=== PATIENT | male | born 1940 | race Caucasian/White ===

== ENCOUNTER 2020-06-11 12:17 | Emergency (ER) | payer MEDICARE, OTHER ==
[2020-06-11] MEDS ORDERED: MORPHINE SULFATE 4 MG/ML SYRINGE IM STA (12:42)
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
--- NOTE | 2020-06-11 13:10 | XR ---
EXAMINATION TYPE: XR Hip Complete RT DATE OF EXAM: 06/11/2020 COMPARISON: NONE HISTORY: Pain TECHNIQUE: 2 views submitted FINDINGS: There is no evidence of erosive change or acute fracture. Arthropathy of the hip diffuse osteopenia. Numerous surgical clips are seen. Parotid lesion involving the femur likely the basis of bone infarct rather than chondroid lesion. Hypertrophic change along the distal margin of the amputated femur. IMPRESSION: 1. No evidence of acute fracture or dislocation. Postsurgical change with diffuse osteopenia and prob able bone infarct.
[2020-06-11 14:08] VITALS: RESP 18
[2020-06-11 14:09] VITALS: BP 138/83; PULSE 61; TEMP 97.8
== END 2020-06-11 14:14 | disposition home or self-care (01) ==
LOC: EC 12:17
DX: T87.89 Other complications of amputation stump (principal); I73.9 Peripheral vascular disease, unspecified; Z79.82 Long term (current) use of aspirin; Z88.1 Allergy status to other antibiotic agents; Z89.611 Acquired absence of right leg above knee; Z85.51 Personal history of malignant neoplasm of bladder; W05.1XXA Fall from non-moving nonmotorized scooter, initial encounter; Y93.55 Activity, bike riding
CPT/HCPCS: 73502; 99283; 96372; J2270

== ENCOUNTER 2020-06-17 19:41 | Inpatient (IN) | payer MEDICARE ==
[2020-06-17] MEDS ORDERED: SODIUM CHLORIDE 0.9% 500 ML 500 ML IV ONE ×2 (19:58→20:37)
--- NOTE | 2020-06-17 20:15 | ED ---
General Adult HPI - General Source: patient, RN notes reviewed, old records reviewed Mode of arrival: wheelchair Limitations: no limitations <Tom Flores - Last Filed: 06/17/20 20:37> <Max Pretty - Last Filed: 06/17/20 21:14> - General Chief complaint: Altered Mental Status Stated complaint: Dark Urine,Hallucinations Time Seen by Provider: 06/17/20 19:52 - History of Present Illness Initial comments: 80-year-old male presents for evaluation of confusion over the past several days. Patient is brought in with his daughter who states that he's been having some visual hallucinations also over the past 48 hours or greater. He has history of previous [id number] amputation on the right secondary to peripheral vascular disease. He denies any weakness in the left lower extremity or weakness in the bilateral upper extremities. He had a fall approximately one week ago onto the left hip. He denies significant head, at that time but is uncertain if he did have a minor head trauma. No cough or fever. No abdominal pain. He's had previous bladder reconstruction and does intermittently self cath. He's had to cath himself over the past 24 hours and his had very dark urine. (Tom Flores) - Related Data Home Medications Medication Instructions Recorded Confirmed Aspirin EC [Ecotrin Low Dose] 81 mg PO DAILY 04/29/16 07/28/16 Atorvastatin [Lipitor] 40 mg PO DAILY 04/29/16 07/28/16 Carvedilol [Coreg] 3.125 mg PO BID 04/29/16 07/28/16 Ciprofloxacin HCl [Cipro] 750 mg PO BID 04/29/16 07/28/16 Furosemide [Lasix] 20 mg PO DAILY 04/29/16 07/28/16 Gabapentin [Neurontin] 300 mg PO TID@0730,1300,1930 04/29/16 07/28/16 Levothyroxine Sodium [Synthroid] 50 mcg PO DAILY@0500 04/29/16 07/28/16 Multivit-Min/FA/Lycopen/Lutein 1 tab PO DAILY 04/29/16 07/28/16 [Centrum Silver Tablet] Sertraline [Zoloft] 50 mg PO DAILY 04/29/16 07/28/16 Sennosides [Senna] 8.6 mg PO BID 07/27/16 07/28/16 Iron 45mg Tab 45 mg PO HS 07/28/16 07/28/16 Pro-Stat Sugar Free 30 ml PO BID 07/28/16 07/28/16 Previous Rx's Medication Instructions Recorded Morphine Sulfate ER [Ms Contin] 15 mg PO BID@0900,2100 #60 tablet 07/31/16 Warfarin Sodium [Coumadin] 3 mg PO HS #30 tab 07/31/16 methocarbamoL [Robaxin] 750 mg PO TID@0730,1300,1930 PRN 07/31/16 #60 tab oxyCODONE-APAP 10-325MG [Percocet 1 each PO Q4H PRN #120 tab 07/31/16 10-325 mg] oxyCODONE HCL/ACETAMINOPHEN 1 tab PO Q6HR PRN 3 Days #12 tab 06/11/20 [Percocet 5-325 mg] Allergies Allergy/AdvReac Type Severity Reaction Status Date / Time vancomycin Allergy Itching Verified 07/28/16 08:51 Review of Systems ROS Other: All systems not noted in ROS Statement are negative. <Tom Flores - Last Filed: 06/17/20 20:37> ROS Other: All systems not noted in ROS Statement are negative. <Max Pretty - Last Filed: 06/17/20 21:14> ROS Statement: Those systems with pertinent positive or pertinent negative responses have been documented in the HPI. Past Medical History Past Medical History: Cancer Additional Past Medical History / Comment(s): Peripheral artery disease; Bladder cancer History of Any Multi-Drug Resistant Organisms: None Reported Past Surgical History: Bladder Surgery Additional Past Surgical History / Comment(s): Aterial bypasses - right leg. Past Anesthesia/Blood Transfusion Reactions: No Reported Reaction Past Psychological History: No Psychological Hx Reported Smoking Status: Never smoker Past Alcohol Use History: Rare Past Drug Use History: Marijuana - Past Family History Father Additional Family Medical History / Comment(s): Rebecca Gherig disease Mother Family Medical History: Myocardial Infarction ([place]) <Tom Flores - Last Filed: 06/17/20 20:37> General Exam Limitations: no limitations General appearance: alert, in no apparent distress Head exam: Present: atraumatic, normocephalic Eye exam: Present: normal appearance, PERRL ENT exam: Present: mucous membranes dry Neck exam: Present: normal inspection. Absent: tenderness, meningismus Respiratory exam: Present: normal lung sounds bilaterally. Absent: respiratory distress, wheezes Cardiovascular Exam: Present: regular rate, normal rhythm GI/Abdominal exam: Present: soft. Absent: distended, tenderness, guarding Extremities exam: Present: other (Right AKA). Absent: pedal edema Neurological exam: Present: alert, oriented X3, CN II-XII intact. Absent: motor sensory deficit Psychiatric exam: Present: normal affect, normal mood Skin exam: Present: warm, dry, intact <Tom Flores - Last Filed: 06/17/20 20:37> Course <Tom Flores - Last Filed: 06/17/20 20:37> Vital Signs 06/17/20 19:44 Temperature 97.9 F Pulse Rate 80 Respiratory 18 Rate Blood Pressure 193/78 O2 Sat by Pulse 99 Oximetry - Reevaluation(s) Reevaluation #1: 06/17/20 20:37 Patient's care is signed out to Dr. Pretty at shift change awaiting laboratory testing and reevaluation. (Tom Flores) EKG Findings - EKG Comments: EKG Findings:: EKG: Normal sinus rhythm, no ST segment elevation, artifact in the inferior leads. Rate of 77, AK interval 206, QRS duration 86, QTC 432 <Tmo Flores - Last Filed: 06/17/20 20:37> Medical Decision Making - Lab Data Result diagrams: 06/17/20 20:23 06/17/20 20:23 <Max Pretty - Last Filed: 06/17/20 21:14> - Medical Decision Making Patient was signed out to me by previous shift physician. Briefly, patient is a 80-year-old male he is brought into the emergency department for hallucinations. Patient was also having abnormal urine per daughter. Plan sign out was to follow-up with laboratory and imaging studies. CBC shows leukocytosis 14.1. Metabolic panel shows acute kidney injury cranial 2.13 BUN of 53. Rest labs appear to be near baseline. Urinalysis is positive for urinary tract infection. Computed tomography scan of the brain is unremarkable. Clinical presentation consistent with metabolic encephalopathy likely from UTI. He does also have component of acute kidney injury. Denies any pain. Considering patient's whole clinical presentation we'll have patient admitted for renal function monitoring, IV hydration and antibiotics. Patient was given 1 g ceftriaxone. He is ree valuated bedside and completely coherent without any signs of hallucinations or abnormal or bizarre behavior. (Max Pretty) - Lab Data Lab Results 06/17/20 06/17/20 06/17/20 Range/Units 20:23 20:23 20:23 WBC 14.1 H (3.8-10.6) k/uL RBC 4.68 (4.30-5.90) m/uL Hgb 13.0 (13.0-17.5) gm/dL Hct 39.7 (39.0-53.0) % MCV 85.0 (80.0-100.0) fL MCH 27.8 (25.0-35.0) pg MCHC 32.7 (31.0-37.0) g/dL RDW 13.8 (11.5-15.5) % Plt Count 307 (150-450) k/uL Neutrophils % 70 % Lymphocytes % 12 % Monocytes % 12 % Eosinophils % 2 % Basophils % 1 % Neutrophils # 9.9 H (1.3-7.7) k/uL Lymphocytes # 1.7 (1.0-4.8) k/uL Monocytes # 1.7 H (0-1.0) k/uL Eosinophils # 0.3 (0-0.7) k/uL Basophils # 0.1 (0-0.2) k/uL Sodium 135 L (137-145) mmol/L Potassium 4.4 (3.5-5.1) mmol/L Chloride 109 H (98-107) mmol/L Carbon Dioxide 15 L (22-30) mmol/L Anion Gap 11 mmol/L BUN 53 H (9-20) mg/dL Creatinine 2.13 H (0.66-1.25) mg/dL Est GFR (CKD-EPI)AfAm 33 (>60 ml/min/1.73 sqM) Est GFR (CKD-EPI)NonAf 28 (>60 ml/min/1.73 sqM) Glucose 106 H (74-99) mg/dL Calcium 8.8 (8.4-10.2) mg/dL Total Bilirubin 0.9 (0.2-1.3) mg/dL AST 91 H (17-59) U/L ALT 60 H (4-49) U/L Alkaline Phosphatase 187 H (38-126) U/L Total Protein 6.8 (6.3-8.2) g/dL Albumin 3.4 L (3.5-5.0) g/dL Urine Color Yellow Urine Appearance Cloudy (Clear) Urine pH 7.5 (5.0-8.0) Ur Specific [place] 1.014 (1.001-1.035) Urine Protein 2+ H (Negative) Urine Glucose (UA) Negative (Negative) Urine Ketones Negative (Negative) Urine Blood Moderate H (Negative) Urine Nitrite Negative (Negative) Urine Bilirubin Negative (Negative) Urine Urobilinogen <2.0 (<2.0) mg/dL Ur Leukocyte Esterase Large H (Negative) Urine RBC 81 H (0-5) /hpf Urine WBC >182 H (0-5) /hpf Urine WBC Clumps Many H (None) /hpf Urine Bacteria Rare H (None) /hpf Hyaline Casts 3 H (0-2) /lpf Urine Yeast (Budding) Few H (None) /hpf Disposition <Tom Flores - Last Filed: 06/17/20 20:37> Decision Time: 21:14 <Max Pretty - Last Filed: 06/17/20 21:14> Clinical Impression: Acute delirium Disposition: ADMITTED IP TO THIS HOSP Condition: Fair Referrals: Donell Childress MD [Primary Care Provider] - 1-2 days
[2020-06-17 20:47] LABS: Basophils # (A) 0.1 k/uL (0-0.2); Basophils % (A) 1 %; Eosinophils # (A) 0.3 k/uL (0-0.7); Eosinophils % (A) 2 %; HCT 39.7 % (39.0-53.0); Lymphocytes # (A) 1.7 k/uL (1.0-4.8); Lymphocytes % (A) 12 %; MCH 27.8 pg (25.0-35.0); MCHC 32.7 g/dL (31.0-37.0); Mean Platelet Volume 7.3; Monocytes # (A) 1.7 k/uL (0-1.0); Monocytes % (A) 12 %; Neutrophils # (A) 9.9 k/uL (1.3-7.7); Neutrophils % (A) 70 %; Platelet Count 307 k/uL (150-450); RBC 4.68 m/uL (4.30-5.90); RDW 13.8 % (11.5-15.5); WBC 14.1 k/uL (3.8-10.6)
--- NOTE | 2020-06-17 20:50 | CT ---
EXAMINATION TYPE: CT brain wo con DATE OF EXAM: 06/17/2020 HISTORY: AMS, hallucinations CT DLP: DLP not available at this time due to system error. Will update once info obtained. mGycm. A utomated Exposure Control for Dose Reduction was Utilized. TECHNIQUE: CT scan of the head is performed without contrast. COMPARISON: None. FINDINGS: There is no acute intracranial hemorrhage or midline shift identified. There is diffuse v entricular and sulcal prominence consistent with diffuse age-related cerebral atrophy. There is low- attenuation in the periventricular white matter consistent with chronic small vessel ischemic change. 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 Old with chronic infarct left external capsule axi al image 24. The globes are intact and the visualized sinuses are clear. IMPRESSION: No acute intracranial hemorrhage or midline shift. There is mild diffuse age-related ce rebral atrophy and moderate to severe chronic small vessel ischemic change with old infarcts noted.
[2020-06-17 21:02] LABS: Albumin 3.4 g/dL (3.5-5.0); Calcium 8.8 mg/dL (8.4-10.2); Potassium 4.4 mmol/L (3.5-5.1); Total Bilirubin 0.9 mg/dL (0.2-1.3); Total Protein 6.8 g/dL (6.3-8.2)
[2020-06-17 21:05] LABS: Appearance,Urine Cloudy (Clear); Bacteria,Urine Rare /hpf; Bilirubin,Urine Negative (Negative); Blood,Urine Moderate (Negative); Budding Yeast,Urine Few /hpf; Color,Urine Yellow; Glucose,Urine (UA) Negative (Negative); Hyaline Casts,Urine 3 /lpf (0-2); Ketones,Urine Negative (Negative); Leukocyte Esterase,Urine Large (Negative); Nitrite,Urine Negative (Negative); PH, Urine 7.5 (5.0-8.0); Protein,Urine 2+ (Negative); RBC,Urine 81 /hpf (0-5); Specific Gravity,Urine 1.014 (1.001-1.035); Urobilinogen,Urine <2.0 mg/dL (<2.0); WBC,Urine >182 /hpf (0-5)
[2020-06-17] MEDS ORDERED: cefTRIAXone IN SWFI 1,000 MG/10 ML SYRINGE IVP STA (21:09)
[2020-06-17] MEDS ORDERED: NALOXONE 0.4 MG/ML 1 ML VIAL IV PRN (21:14)
[2020-06-17 21:18] LABS: INR 0.9 (<1.2); Partial Thromboplastin Time 24.5 sec (22.0-30.0); Prothrombin Time 9.5 sec (9.0-12.0)
[2020-06-17] MEDS ORDERED: LABETALOL 5 MG/ML VIAL MDV IVP STA (22:23)
[2020-06-17] MEDS: SODIUM CHLORIDE 0.9% 1,000 ML IV SCH (22:27)
[2020-06-17] MEDS ORDERED: ATORVASTATIN 40 MG TAB PO SCH (23:45)
[2020-06-18] MEDS: AMITRIPTYLINE HCL 10 MG TAB PO SCH ×2 (00:22→21:38)
[2020-06-18] MEDS: GABAPENTIN 400 MG CAP PO SCH ×2 (00:22→09:01)
[2020-06-18] MEDS: LEVOTHYROXINE 50 MCG TAB PO SCH (05:17)
[2020-06-18 07:08] LABS: Glucose,Whole Blood 120 mg/dL (75-99)
[2020-06-18] MEDS: carvediloL 3.125 MG TAB PO SCH (09:01)
[2020-06-18] MEDS: PANTOPRAZOLE 40 MG TABLET PO SCH (09:01)
[2020-06-18] MEDS: ASPIRIN 81 MG PO SCH (09:01)
--- NOTE | 2020-06-18 11:24 | P.HPIM ---
History of Present Illness 80-year-old male presents for evaluation of confusion over the past several days. Patient is brought in with his daughter who states that he's been having some visual hallucinations also over the past 48 hours or greater. He has h istory of previous [id number] amputation on the right secondary to peripheral vascular disease. He denies any weakness in the left lower extremity or weakness in the bilateral upper extremities. He had a fall approximately one week ago onto the left hip. He denies significant head, at that time but is uncertain if he did have a minor head trauma. No cough or fever. No abdominal pain. He's had previous bladder reconstruction and does intermittently self cath. patient was having urinary retention for less today or 2.usually doesn't evidence for catheterization. Patient does have hematuria and I did have elevated serum creatinine. Patient denied any fever chills. Patient was having mild dysuria.. Urinalysis is significantly abnormal mostly white blood cell count and RBC. Patient does have leukocyte esterase positive is well hydrated is negative. Patient does have proteinuria baseline creatinine around 0.5 now around 1.9.patient has a fully catheter in place. Review of Systems REVIEW OF SYSTEMS: CONSTITUTIONAL: No fever, no malaise, no fatigue. HEENT: No recent visual problems or hearing problems. Denied any sore throat. CARDIOVASCULAR: No chest pain, orthopnea, PND, no palpitations, no syncope. PULMONARY: No shortness of breath, no cough, no hemoptysis. GASTROINTESTINAL: No diarrhea, no nausea, no vomiting, no abdominal pain. NEUROLOGICAL: No headaches, no weakness, no numbness. HEMATOLOGICAL: Denies any bleeding or petechiae. GENITOURINARY: Denies any burning micturition, frequency, or urgency. MUSCULOSKELETAL/RHEUMATOLOGICAL: Denies any joint pain, swelling, or any muscle pain. ENDOCRINE: Denies any polyuria or polydipsia. The rest of the 14-point review of systems is negative. Past Medical History Past Medical History: Cancer Additional Past Medical History / Comment(s): Peripheral artery disease; Bladder cancer History of Any Multi-Drug Resistant Organisms: None Reported Past Surgical History: Bladder Surgery Additional Past Surgical History / Comment(s): Aterial bypasses - right leg. Right AKA 2014. Past Anesthesia/Blood Transfusion Reactions: No Reported Reaction Past Psychological History: No Psychological Hx Reported Smoking Status: Former smoker Past Alcohol Use History: Rare Past Drug Use History: Marijuana - Past Family History Father Additional Family Medical History / Comment(s): Rebecca Gherig disease Mother Family Medical History: Myocardial Infarction ([place]) Medications and Allergies Home Medications Medication Instructions Recorded Confirmed Type Aspirin EC [Ecotrin Low Dose] 81 mg PO DAILY 04/29/16 06/17/20 History Atorvastatin [Lipitor] 40 mg PO Q48H 04/29/16 06/17/20 History Carvedilol [Coreg] 3.125 mg PO DAILY 04/29/16 06/17/20 History Levothyroxine Sodium [Synthroid] 50 mcg PO DAILY@0500 MDD LOULOU ONLY 04/29/16 06/17/20 History Multivit-Min/FA/Lycopen/Lutein 1 tab PO DAILY 04/29/16 06/17/20 History [Centrum Silver Tablet] Amitriptyline HCl [Elavil] 10 mg PO HS 06/17/20 06/17/20 History Ciprofloxacin HCl [Cipro] 500 mg PO DAILY 06/17/20 06/17/20 History Clopidogrel [Plavix] 75 mg PO DAILY 06/17/20 06/17/20 History Gabapentin 800 mg PO BID 06/17/20 06/17/20 History Pantoprazole [Protonix] 40 mg PO DAILY 06/17/20 06/17/20 History Allergies Allergy/AdvReac Type Severity Reaction Status Date / Time vancomycin Allergy Itching Verified 06/17/20 21:16 Physical Exam Vitals: Vital Signs Temp Pulse Pulse Resp BP BP Pulse Ox 06/18/20 07:00 98.4 F 76 17 148/67 98 06/18/20 04:00 98.7 F 69 18 152/68 96 06/18/20 03:30 18 06/18/20 00:00 18 06/17/20 23:00 98.7 F 69 18 153/68 96 06/17/20 22:47 64 18 169/84 96 06/17/20 22:32 97.9 F 78 18 179/80 99 06/17/20 22:28 80 190/85 06/17/20 22:27 190/85 06/17/20 21:26 80 18 170/77 95 06/17/20 19:44 97.9 F 80 18 193/78 99 Intake and Output 06/17/20 06/18/2006/18/20 22:59 06:59 14:59 Output Total 3100 Balance -3100 Output: Urine 1900 Uretheral ([place]) 700 Post Void Residual 1200 Other: Voiding Method Toilet Self-Catheterization Weight 79.379 kg PHYSICAL EXAMINATION: GENERAL: The patient is alert and oriented x3, not in any acute distress. Well developed, well nourished. HEENT: Pupils are round and equally reacting to light. EOMI. No scleral icterus. No conjunctival pallor. Normocephalic, atraumatic. No pharyngeal erythema. No thyromegaly. CARDIOVASCULAR: S1 and S2 present. No murmurs, rubs, or gallops. PULMONARY: Chest is clear to auscultation, no wheezing or crackles. ABDOMEN: Soft, nontender, nondistended, normoactive bowel sounds. No palpable organomegaly. MUSCULOSKELETAL: No joint swelling or deformity. EXTREMITIES: No cyanosis, clubbing, or pedal edema. NEUROLOGICAL: Gross neurological examination did not reveal any focal deficits. SKIN: No rashes. Results CBC & Chem 7: 06/17/20 20:23 06/17/20 20:23 Labs: Abnormal Lab Results - Last 24 Hours (Table) 06/17/20 06/17/20 06/17/20 Range/Units 20:23 20:23 20:23 WBC 14.1 H (3.8-10.6) k/uL Neutrophils # 9.9 H (1.3-7.7) k/uL Monocytes # 1.7 H (0-1.0) k/uL Sodium 135 L (137-145) mmol/L Chloride 109 H (98-107) mmol/L Carbon Dioxide 15 L (22-30) mmol/L BUN 53 H (9-20) mg/dL Creatinine 2.13 H (0.66-1.25) mg/dL Glucose 106 H (74-99) mg/dL POC Glucose (mg/dL) (75-99) mg/dL AST 91 H (17-59) U/L ALT 60 H (4-49) U/L Alkaline Phosphatase 187 H (38-126) U/L Albumin 3.4 L (3.5-5.0) g/dL Urine Protein 2+ H (Negative) Urine Blood Moderate H (Negative) Ur Leukocyte Esterase Large H (Negative) Urine RBC 81 H (0-5) /hpf Urine WBC >182 H (0-5) /hpf Urine WBC Clumps Many H (None) /hpf Urine Bacteria Rare H (None) /hpf Hyaline Casts 3 H (0-2) /lpf Urine Yeast (Budding) Few H (None) /hpf 06/18/20 Range/Units 07:05 WBC (3.8-10.6) k/uL Neutrophils # (1.3-7.7) k/uL Monocytes # (0-1.0) k/uL Sodium (137-145) mmol/L Chloride (98-107) mmol/L Carbon Dioxide (22-30) mmol/L BUN (9-20) mg/dL Creatinine (0.66-1.25) mg/dL Glucose (74-99) mg/dL POC Glucose (mg/dL) 120 H (75-99) mg/dL AST (17-59) U/L ALT (4-49) U/L Alkaline Phosphatase (38-126) U/L Albumin (3.5-5.0) g/dL Urine Protein (Negative) Urine Blood (Negative) Ur Leukocyte Esterase (Negative) Urine RBC (0-5) /hpf Urine WBC (0-5) /hpf Urine WBC Clumps (None) /hpf Urine Bacteria (None) /hpf Hyaline Casts (0-2) /lpf Urine Yeast (Budding) (None) /hpf Microbiology - Last 24 Hours (Table) 06/17/20 20:23 Urine Culture - Preliminary Urine,Catheterized Thrombosis Risk Factor Assmnt - Choose All That Apply Any of the Below Risk Factors Present?: No Other Risk Factors: Yes Each Risk Factor Represents 3 Points: Age 75 years or older Other congenital or acquired thrombophilia - If yes, enter type in comment: No Thrombosis Risk Factor Assessment Total Risk Factor Score: 3 Thrombosis Risk Factor Assessment Level: Moderate Risk Assessment and Plan Plan: -acute renal failure: Rule out obstructive uropathy with considering BUN and creatinine ratio patient may have prerenal azotemia as well patient will be started on IV fluids and continued on IV fluids patient had presently has a Toscano catheter lab cannot Do the Kidney, urinary bladder. Nephrology will be co nsulted. Next -Encephalopathy,metabolic and toxic probably related to gabapentin and other medications along with renal failure, continue with IV fluids and the monitor him clinically.Cipro Floxin can cosmopolitans of lethargy as well but patient states he doesn't take ciprofloxacin next -Possibly of urinary tract infection: Patient was started on Rocephin. Patient has enterococcus in the urine which is more than 4 years ago because of which she not starting him on Unasyn as a cultures were 4 years ago. -hyperchloremic metabolic acidosis. -bladder cancer intermittent self-catheterization -history of peripheral vascular disease with the right-sided lower limb amputation patient is on aspirin and Plavix which will be continued. -Due to prophylaxis with subcutaneous heparin
[2020-06-18 11:29] LABS: Glucose,Whole Blood 116 mg/dL (75-99)
--- NOTE | 2020-06-18 11:39 | US ---
EXAMINATION TYPE: US kidneys/renal and bladder DATE OF EXAM: 06/18/2020 COMPARISON: NONE CLINICAL HISTORY: GIO. abnormal labs. No pain per patient. Bladder catheter. EXAM MEASUREMENTS: Right Kidney: 9.6 x 5.2 x 5.3 cm Left Kidney: cm Right Kidney: Upper pole echogenic nonshadowing focus = 1.1 cm. Moderate hydronephrosis. Left Kidney: No hydronephrosis or masses seen Bladder: Toscano seen. Echogenic area with shadaowing and twinkling artifact at posterior bladder = 3. 5 x 4.1 cm. Bilateral Jets not seen due to catheter Cortical medullary differentiation is maintained. IMPRESSION: Moderate right hydronephrosis, possible nonobstructive upper pole right renal calculus. The urinary b ladder is catheterized, indeterminate echogenic area in the dependent portion
[2020-06-18] MEDS: TAMSULOSIN 0.4 MG CAP.ER.24H PO SCH (12:03)
[2020-06-18 16:51] LABS: Glucose,Whole Blood 107 mg/dL (75-99)
[2020-06-18 20:24] LABS: Glucose,Whole Blood 108 mg/dL (75-99)
[2020-06-18] MEDS: HEPARIN SODIUM,PORCINE 5,000 UNIT/ML 1 ML VIAL SQ SCH (21:38)
[2020-06-18] MEDS: SODIUM CHLORIDE 0.9% 1,000 ML IV SCH (21:38)
[2020-06-19 03:54] VITALS: RESP 17
[2020-06-19 05:02] LABS: HCT 36.6 % (39.0-53.0); HGB 11.9 gm/dL (13.0-17.5); MCH 27.6 pg (25.0-35.0); MCHC 32.5 g/dL (31.0-37.0); MCV 84.7 fL (80.0-100.0); Mean Platelet Volume 7.1; Platelet Count 295 k/uL (150-450); RBC 4.32 m/uL (4.30-5.90); RDW 14.1 % (11.5-15.5); WBC 12.4 k/uL (3.8-10.6)
[2020-06-19] MEDS: LEVOTHYROXINE 50 MCG TAB PO SCH (06:04)
[2020-06-19 07:10] LABS: Glucose,Whole Blood 102 mg/dL (75-99)
[2020-06-19 07:57] VITALS: BP 168/75; PULSE 81; TEMP 98.2
[2020-06-19] MEDS: PANTOPRAZOLE 40 MG TABLET PO SCH (08:10)
[2020-06-19] MEDS: carvediloL 3.125 MG TAB PO SCH (08:10)
[2020-06-19] MEDS: TAMSULOSIN 0.4 MG CAP.ER.24H PO SCH (08:10)
[2020-06-19] MEDS: HEPARIN SODIUM,PORCINE 5,000 UNIT/ML 1 ML VIAL SQ SCH (08:10)
[2020-06-19] MEDS: ASPIRIN 81 MG PO SCH (08:10)
[2020-06-19] MEDS ORDERED: MULTIVITAMINS, THERA 1 EACH TAB PO SCH (09:00)
[2020-06-19] MEDS ORDERED: CLOPIDOGREL 75 MG TAB PO SCH (09:00)
[2020-06-19] MEDS ORDERED: KETOROLAC 15 MG/ML 1 ML VIAL IVP STA (10:06)
[2020-06-19 10:12] LABS: African American GFR (CKD) 65.3 (60.0-200.0); Anion Gap 9.2 mmol/L (4.00-12.00); BUN/Creat Ratio 26.67 Ratio (12.00-20.00); Calcium 8.2 mg/dL (8.7-10.3); Carbon Dioxide 17.8 mmol/L (21.6-31.8); Non-African American GFR(CKD) 56.4 (60.0-200.0); Potassium 3.8 mmol/L (3.5-5.5)
[2020-06-19 11:42] LABS: Glucose,Whole Blood 107 mg/dL (75-99)
--- NOTE | 2020-06-19 12:55 | P.NPCON ---
History of Present Illness - Reason for Consult acute renal failure - History of Present Illness reason for consultation: Acute kidney injury History of present illness: Patient is a 80-year-old male seen in renal consultation for acute kidney injury. Patient presented to the hospital with confusion. Currently he is awake and alert. Patient states he sustained a fall about a week ago. He was then performing self catheterizations. He does have right-sided hydronephrosis. Toscano catheter was placed this admission. Nonoliguric. Creatinine was 2.13 on admission and is 1.2 today. Denies hematuria or dysuria. he denies regular use of nonsteroidals. No vomiting or diarrhea. Oral intake is fair. No chest pain or shortness of breath. No edema. no evidence of hypotension. Blood pressure has actually been on the higher side. denies personal or family history of kidney disease. No history of diabetes. No dizziness or syncopal episodes. currently on antibiotics for UTI. Urine culture positive for gram-negative bacilli. Vital signs are stable. General: The patient appeared well nourished and normally developed. HEENT: Head exam is unremarkable. Neck is without jugular venous distension. LUNGS: Lungs are clear to auscultation and percussion. Breath sounds decreased. HEART: Rate and Rhythm are regular. ABDOMEN: soft, nontender. EXTREMITITES: No clubbing, cyanosis, or edema. Past Medical History Past Medical History: Cancer Additional Past Medical History / Comment(s): Peripheral artery disease; Bladder cancer History of Any Multi-Drug Resistant Organisms: None Reported Past Surgical History: Bladder Surgery Additional Past Surgical History / Comment(s): Aterial bypasses - right leg. Right AKA 2014. Past Anesthesia/Blood Transfusion Reactions: No Reported Reaction Past Psychological History: No Psychological Hx Reported Smoking Status: Former smoker Past Alcohol Use History: Rare Past Drug Use History: Marijuana - Past Family History Father Additional Family Medical History / Comment(s): Rebecca Gherig disease Mother Family Medical History: Myocardial Infarction ([place]) Medications and Allergies Home Medications Medication Instructions Recorded Confirmed Type Aspirin EC [Ecotrin Low Dose] 81 mg PO DAILY 04/29/16 06/17/20 History Atorvastatin [Lipitor] 40 mg PO Q48H 04/29/16 06/17/20 History Carvedilol [Coreg] 3.125 mg PO DAILY 04/29/16 06/17/20 History Levothyroxine Sodium [Synthroid] 50 mcg PO DAILY@0500 MDD LOULOU ONLY 04/29/16 06/17/20 History Multivit-Min/FA/Lycopen/Lutein 1 tab PO DAILY 04/29/16 06/17/20 History [Centrum Silver Tablet] Amitriptyline HCl [Elavil] 10 mg PO HS 06/17/20 06/17/20 History Clopidogrel [Plavix] 75 mg PO DAILY 06/17/20 06/17/20 History Gabapentin 800 mg PO BID 06/17/20 06/17/20 History Pantoprazole [Protonix] 40 mg PO DAILY 06/17/20 06/17/20 History Amoxic-Pot Clav 875-125Mg 1 tab PO Q12HR 3 Days #6 tab 06/19/20 Rx [Augmentin 875-125] Tamsulosin [Flomax] 0.4 mg PO PC-BRKFST #30 cap.er.24h 06/19/20 Rx Allergies Allergy/AdvReac Type Severity Reaction Status Date / Time vancomycin Allergy Itching Verified 06/17/20 21:16 Physical Exam Vitals: Vital Signs Temp Pulse Resp BP Pulse Ox 06/19/20 07:00 98.2 F 81 17 168/75 96 06/19/20 03:53 99.3 F 83 17 132/68 96 06/19/20 03:10 18 06/18/20 23:40 18 06/18/20 19:39 99.0 F 73 18 147/69 96 06/18/20 19:10 18 06/18/20 15:00 98.9 F 72 16 153/71 97 Intake and Output 06/18/20 06/19/20 06/19/20 22:59 06:59 14:59 Output Total 600 1400 Balance -600 -1400 Output: Urine 600 1400 Other: Voiding Method Indwelling Catheter Indwelling Catheter Results - Lab Results Most recent lab results Calcium 8.2 mg/dL (8.7-10.3) L 06/19/20 04:34 06/19/20 04:34 06/19/20 04:34 Assessment and Plan Plan: assessment: 1. Acute kidney injury mostly prerenal improving with IV hydration. Creatinine was 2.13 on admission and is 1.2 today. 2. UTI with urine culture positive for gram-negative bacilli maintained on antibiotics. 3. Peripheral arterial disease status post right [id number] habitation. 4. Metabolic acidosis secondary to acute kidney injury. 5. Right-sided hydronephrosis. plan: Encourage oral intake. Remains off IV fluids. Maintain Toscano catheter. Consider urology consult for further reccs regarding the hydronephrosis and Toscano catheter removal. Add oral sodium bicarbonate. repeat electrolytes in the morning. Avoid nephrotoxins. Thank you for the consultation. I will continue to follow the patient with you during his hospital stay.
[2020-06-19] MEDS ORDERED: SODIUM BICARBONATE TAB 650 MG TAB PO SCH (13:00)
--- NOTE | 2020-06-19 14:24 | P.DS ---
Providers Date of admission: 06/18/20 15:17 Expected date of discharge: 06/19/20 Attending physician: Donell Childress MD Consults: 06/18/20 10:29 Consult Physician Routine Consulting Provider: Rosita Torre Consult Reason/Comments: GIO Do you want consulting provider notified?: Yes Primary care physician: Donell Childress MD Hospital Course: Final Diagnoses: Acute renal failure, prerenal, improving Right-sided hydronephrosis Encephalopathy, metabolic and toxic, multifactorial, medication induced and acute renal failure Acute UTI secondary to straight cathing ,in a patient with history of enterococcus in the urine-4 years ago, cultures reporting gram-negative bacilli Metabolic acidosis secondary to acute renal failure Bladder cancer intermittent, self-catheterization PAD with right-sided lower limb amputation Hospital course: This is a 80-year-old gentleman admitted with multiple medical issues including acute renal failure, right-sided hydronephrosis, acute UTI and multiple other medical issues. Evaluated and verbally cleared by nephrology. Patient to follow-up with urology in 1 week regarding hydronephrosis. Patient will be discharged home in a stable condition with guarded prognosis. Microbiology 06/17/20 20:23 Urine,Catheterized Urine Culture - Preliminary Gram Neg Bacilli The impression and plan of care has been dictated as directed. : I performed a history and examination of this patient, discussed the same with the dictator. I agree with the dictator's note ,documented as a scribe. Any additional findings or plans will be noted. Patient Condition at Discharge: Stable Plan - Discharge Summary Discharge Rx Participant: No New Discharge Prescriptions: New Amoxic-Pot Clav 875-125Mg [Augmentin 875-125] 1 tab PO Q12HR 3 Days #6 tab Tamsulosin [Flomax] 0.4 mg PO PC-BRKFST #30 cap.er.24h Ciprofloxacin HCl [Cipro] 500 mg PO DAILY 3 Days #30 tab Sodium Bicarbonate Tab 650 mg PO BID #20 tab Continue Levothyroxine Sodium [Synthroid] 50 mcg PO DAILY@0500 MDD LOULOU ONLY Multivit-Min/FA/Lycopen/Lutein [Centrum Silver Tablet] 1 tab PO DAILY Carvedilol [Coreg] 3.125 mg PO DAILY Atorvastatin [Lipitor] 40 mg PO Q48H Aspirin EC [Ecotrin Low Dose] 81 mg PO DAILY Pantoprazole [Protonix] 40 mg PO DAILY Amitriptyline HCl [Elavil] 10 mg PO HS Gabapentin 800 mg PO BID Clopidogrel [Plavix] 75 mg PO DAILY Discontinued Ciprofloxacin HCl [Cipro] 500 mg PO DAILY Discharge Medication List Aspirin EC [Ecotrin Low Dose] 81 mg PO DAILY 04/29/16 [History] Atorvastatin [Lipitor] 40 mg PO Q48H 04/29/16 [History] Carvedilol [Coreg] 3.125 mg PO DAILY 04/29/16 [History] Levothyroxine Sodium [Synthroid] 50 mcg PO DAILY@0500 MDD LOULOU ONLY 04/29/16 [History] Multivit-Min/FA/Lycopen/Lutein [Centrum Silver Tablet] 1 tab PO DAILY 04/29/16 [History] Amitriptyline HCl [Elavil] 10 mg PO HS 06/17/20 [History] Clopidogrel [Plavix] 75 mg PO DAILY 06/17/20 [History] Gabapentin 800 mg PO BID 06/17/20 [History] Pantoprazole [Protonix] 40 mg PO DAILY 06/17/20 [History] Amoxic-Pot Clav 875-125Mg [Augmentin 875-125] 1 tab PO Q12HR 3 Days #6 tab 06/19/20 [Rx] Ciprofloxacin HCl [Cipro] 500 mg PO DAILY 3 Days #30 tab 06/19/20 [Rx] Sodium Bicarbonate Tab 650 mg PO BID #20 tab 06/19/20 [Rx] Tamsulosin [Flomax] 0.4 mg PO PC-BRKFST #30 cap.er.24h 06/19/20 [Rx] Follow up Appointment(s)/Referral(s): Donell Childress MD [Primary Care Provider] - 3 Days Kiel Corrigan MD [STAFF PHYSICIAN] - 1 Week Ambulatory/Diagnostic Orders: Complete Blood Count w/diff [LAB.AMB] Time Frame: 3 Days, Location: None Selected Discharge Disposition: HOME SELF-CARE
== END 2020-06-19 17:11 | disposition home health service (06) | DRG 698 ==
LOC: EC 19:41 → 4SSUR 21:14 → OBSVTOIN 06-18 15:17
PROVIDERS: ADMIT Family Medicine; ATTEND Family Medicine
DX: T83.518A Infection and inflammatory reaction due to other urinary catheter, initial encounter (principal); G92 Toxic encephalopathy; N17.9 Acute kidney failure, unspecified; F05 Delirium due to known physiological condition; E87.2 Acidosis; N13.6 Pyonephrosis; C67.9 Malignant neoplasm of bladder, unspecified; R40.2363 Coma scale, best motor response, obeys commands, at hospital admission; R40.2143 Coma scale, eyes open, spontaneous, at hospital admission; I73.9 Peripheral vascular disease, unspecified; R40.2253 Coma scale, best verbal response, oriented, at hospital admission; Z79.01 Long term (current) use of anticoagulants; B96.89 Other specified bacterial agents as the cause of diseases classified elsewhere; T50.905A Adverse effect of unspecified drugs, medicaments and biological substances, initial encounter; Z79.899 Other long term (current) drug therapy; Z79.02 Long term (current) use of antithrombotics/antiplatelets; Z79.82 Long term (current) use of aspirin; Z79.890 Hormone replacement therapy; Z88.1 Allergy status to other antibiotic agents; Z85.51 Personal history of malignant neoplasm of bladder; Z98.890 Other specified postprocedural states; Z82.49 Family history of ischemic heart disease and other diseases of the circulatory system; Z89.611 Acquired absence of right leg above knee; Z87.891 Personal history of nicotine dependence; Z82.0 Family history of epilepsy and other diseases of the nervous system
CPT/HCPCS: 36415; 70450; 76770; 80048; 80053; 81001; 85025; 85027; 85610; 85730; 87077; 87086; 87186; 96361; 96374; 96375; 99285

== ENCOUNTER 2022-04-16 15:21 | Emergency (ER) | payer MEDICARE ==
[2022-04-16 15:49] VITALS: BP 154/86; PULSE 91; TEMP 97.7
[2022-04-16] MEDS ORDERED: SODIUM CHLORIDE 0.9% 2,000 ML IV STA (16:09)
--- NOTE | 2022-04-16 16:14 | ED ---
Abdominal Pain HPI - General Chief Complaint: Abdominal Pain Stated Complaint: Constipation Time Seen by Provider: 04/16/22 15:57 Source: patient Mode of arrival: wheelchair Limitations: no limitations - History of Present Illness Initial Comments: Patient is an 81-year-old male who presents with a chief complaint of constipation. Patient states he has not had a bowel movement in 2 days. Patient states he normally has bowel movements every day. Patient states he keeps trying to have a bowel movement however he is unable to go. Patient denies fever, chills, shortness of breath, chest pain, abdominal pain, nausea, vomiting, and burning with urination. Denies daily narcotic use. - Related Data Home Medications Medication Instructions Recorded Confirmed Aspirin EC [Ecotrin Low Dose] 81 mg PO DAILY 04/29/16 06/17/20 Atorvastatin [Lipitor] 40 mg PO Q48H 04/29/16 06/17/20 Carvedilol [Coreg] 3.125 mg PO DAILY 04/29/16 06/17/20 Levothyroxine Sodium [Synthroid] 50 mcg PO DAILY@0500 MDD LOULOU ONLY 04/29/16 06/17/20 Multivit-Min/FA/Lycopen/Lutein 1 tab PO DAILY 04/29/16 06/17/20 [Centrum Silver Tablet] Amitriptyline HCl [Elavil] 10 mg PO HS 06/17/20 06/17/20 Clopidogrel [Plavix] 75 mg PO DAILY 06/17/20 06/17/20 Gabapentin 800 mg PO BID 06/17/20 06/17/20 Pantoprazole [Protonix] 40 mg PO DAILY 06/17/20 06/17/20 Previous Rx's Medication Instructions Recorded Amoxic-Pot Clav 875-125Mg 1 tab PO Q12HR 3 Days #6 tab 06/19/20 [Augmentin 875-125] Ciprofloxacin HCl [Cipro] 500 mg PO DAILY 3 Days #30 tab 06/19/20 Sodium Bicarbonate Tab 650 mg PO BID #20 tab 06/19/20 Tamsulosin [Flomax] 0.4 mg PO PC-BRKFST #30 cap.er.24h 06/19/20 Allergies Allergy/AdvReac Type Severity Reaction Status Date / Time vancomycin Allergy Itching Verified 04/16/22 15:45 Review of Systems ROS Statement: Those systems with pertinent positive or pertinent negative responses have been documented in the HPI. ROS Other: All systems not noted in ROS Statement are negative. Past Medical History Past Medical History: Cancer Additional Past Medical History / Comment(s): Peripheral artery disease; Bladder cancer History of Any Multi-Drug Resistant Organisms: None Reported Past Surgical History: Bladder Surgery Additional Past Surgical History / Comment(s): Aterial bypasses - right leg. Right AKA 2014. Past Anesthesia/Blood Transfusion Reactions: No Reported Reaction Past Psychological History: No Psychological Hx Reported Smoking Status: Former smoker Past Alcohol Use History: Rare Past Drug Use History: Marijuana - Past Family History Father Additional Family Medical History / Comment(s): Rebecca Gherig disease Mother Family Medical History: Myocardial Infarction ([place]) General Exam Limitations: no limitations General appearance: alert, in no apparent distress Head exam: Present: atraumatic, normocephalic, normal inspection Eye exam: Present: normal appearance, PERRL, EOMI. Absent: scleral icterus, conjunctival injection, periorbital swelling Neck exam: Present: normal inspection Respiratory exam: Present: normal lung sounds bilaterally. Absent: respiratory distress, wheezes, rales, rhonchi, stridor Cardiovascular Exam: Present: regular rate, normal rhythm, normal heart sounds. Absent: systolic murmur, diastolic murmur, rubs, gallop, clicks GI/Abdominal exam: Present: soft, normal bowel sounds. Absent: distended, tenderness, guarding, rebound, rigid Neurological exam: Present: alert, oriented X3, CN II-XII intact Psychiatric exam: Present: normal affect, normal mood Skin exam: Present: warm, dry, intact, normal color. Absent: rash Course Vital Signs 04/16/22 04/16/22 15:46 17:00 Temperature 97.7 F Pulse Rate 91 Respiratory 26 H 18 Rate Blood Pressure 154/86 O2 Sat by Pulse 98 Oximetry Medical Decision Making - Medical Decision Making This is an 81-year-old male who presents with constipation. Thorough history and examination were performed. Patient does appear pale however patient and daughter state this is not unusual for him. The abdomen is soft and nontender. Initially laboratory studies were ordered however patient declined. KUB x-ray was obtained. Upon waiting for results patient has large bowel movement and states he feels a lot better. KUB x-ray is negative for acute process including any significant constipation. Patient will be discharged with instruction to increase his fluid and fiber intake. He is to follow-up with primary care provider. Return parameters discussed. Patient verbalizes understanding and is agreeable to this plan. Dr. Reyes is my attending. Disposition Clinical Impression: Constipation Disposition: HOME SELF-CARE Condition: Good Instructions (If sedation given, give patient instructions): Constipation (ED), High Fiber Diet (ED) Additional Instructions: Increase water and fiber intake to prevent further constipation. Follow up with primary care provider in one to 2 days. Return to the emergency department experience new, concerning, or worsening symptoms. Is patient prescribed a controlled substance at d/c from ED?: No Referrals: Donell Childress MD [Primary Care Provider] - 1-2 days Time of Disposition: 17:43
--- NOTE | 2022-04-16 17:25 | XR ---
EXAMINATION TYPE: XR KUB DATE OF EXAM: 04/16/2022 COMPARISON: NONE HISTORY: Constipation TECHNIQUE: 3 views FINDINGS: Multiple supine views were obtained. No sign of intestinal obstruction or pneumoperitoneum. Fecal pattern is normal. No evidence of any significant constipation. There are numerous surgical cl ips in the pelvis. There is extensive vascular calcification. Lung bases are clear of consolidation. IMPRESSION: Nonacute abdomen.
[2022-04-16 17:35] VITALS: RESP 18
== END 2022-04-16 18:12 | disposition home or self-care (01) ==
LOC: EC 15:21
DX: K59.00 Constipation, unspecified (principal); Z87.891 Personal history of nicotine dependence; Z88.1 Allergy status to other antibiotic agents
CPT/HCPCS: 74018; 96360; 96361; 99283

== ENCOUNTER → 2022-09-05 | Outpatient (CLI) | payer MEDICARE ==
--- NOTE | 2022-09-06 07:38 | CT ---
EXAMINATION TYPE: CT abdomen pelvis wo con CT DLP: 427.3 mGycm, Automated exposure control for dose reduction was used. DATE OF EXAM: 09/05/2022 4:39 PM COMPARISON: 06/18/2022 6 ultrasound CLINICAL INDICATION:Male, 82 years old with history of N39.0, Z85.51; h/o bladder CA TECHNIQUE: Axial CT of the abdomen and pelvis. Sagittal and coronal reformats were created on a [employer] workstation. Contrast used none Oral contrast used: without Oral Contrast FINDINGS: LOWER CHEST: Right posterior fat-containing Bochdalek hernia. ABDOMEN LIVER: Unremarkable GALLBLADDER AND BILE DUCTS: Unremarkable. PANCREAS: Unremarkable. SPLEEN: Calcified granulomas within the spleen. ADRENAL GLANDS: Unremarkable. KIDNEYS AND URETERS: No evidence of right obstructive uropathy. The left kidney demonstrates moderate hydronephrosis there is a nodular masslike appearance to the left proximal ureter which is suboptima lly evaluated without IV contrast, this area measures at least 3.1 x 1.8 x 2.0 cm. PELVIS BLADDER: Bladder stone layering dependently measuring up to 2.4 cm. REPRODUCTIVE: Unremarkable. ABDOMEN & PELVIS STOMACH AND BOWEL: No evidence of bowel obstruction. Postsurgical changes to the bowel in the anterio r low abdomen. PERITONEUM: No evidence of pneumoperitoneum or free fluid. VASCULATURE: No evidence of aortic aneurysm. Aortobiiliac stent graft present along with additional s tents extending to the common femoral arteries. Right lateral abdomen wall stent graft that terminate s near the femoral veins in the right anterior thigh. This tubing along the right anterolateral aspec t of the subcutaneous tissues has a slitlike morphology as it passes iliac crest. MUSCULOSKELETAL: No acute osseous abnormalities, multilevel disc degeneration changes are present thr oughout the spine disc space narrowing at L3-L4. There is moderate to severe degeneration changes of the left hip with subchondral cystic change and sclerosis. There is increased sclerosis of the right proximal femur could represent prior bone fire infarct. LYMPH NODES: There are a few lymph nodes at the level of the left renal sinus which are enlarged elizabeth uring up to 19 mm in short axis. SOFT TISSUE/ABDOMINAL WALL: Postsurgical changes the lateral inguinal regions with multiple clips and scarring changes. IMPRESSION: 1. Left mid ureter mass resulting in moderate left hydronephrosis. 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 2. Left renal sinus lymph nodes which are enlarged and concerning for metastatic disease until prove n otherwise. 3. Bladder stone. 4. Vascular stent grafts, one of which along the right subcutaneous tissues has a slightly appearanc e as it crosses the iliac crest.
== END | disposition home or self-care (01) ==
LOC: RADCTMAIN 14:53
PROVIDERS: ATTEND Family Medicine
DX: N39.0 Urinary tract infection, site not specified (principal); N13.30 Unspecified hydronephrosis; N21.0 Calculus in bladder; R59.0 Localized enlarged lymph nodes; Z85.51 Personal history of malignant neoplasm of bladder
CPT/HCPCS: 36415; 74176; 82565; 84520

== ENCOUNTER → 2023-03-27 | Outpatient (CLI) | payer MEDICARE ==
[2023-03-27 17:17] LABS: ALT 21 U/L (10-49); AST 20 U/L (14-35); Albumin/Globulin Ratio 1.11 Ratio (1.60-3.17); Alkaline Phosphatase 133 U/L (41-126); Basophils # (A) 0.11 X 10*3/uL (0.00-0.10); Basophils % (A) 0.8 %; Blood Urea Nitrogen 25.2 mg/dL (9.0-27.0); Calcium 9.6 mg/dL (8.7-10.3); Carbon Dioxide 24.1 mmol/L (21.6-31.8); Chloride 105 mmol/L (96-109); Eosinophils # (A) 0.59 X 10*3/uL (0.04-0.35); Eosinophils % (A) 4.5 %; Globulin 3.6 d/dL (1.6-3.3); Glucose 93 mg/dL (70-110); HCT 34.9 % (39.6-50.0); HGB 10.8 d/dL (12.0-15.0); Lymphocytes # (A) 2.12 X 10*3/uL (0.90-5.00); Lymphocytes % (A) 16.1 %; MCH 26.7 pg (27.0-32.0); MCHC 30.9 d/dL (32.0-37.0); MCV 86.2 FL (80.0-97.0); Mean Platelet Volume 9.6 FL (9.5-12.2); Monocytes # (A) 1.03 X 10*3/uL (0.20-1.00); Monocytes % (A) 7.8 %; NRBC Per 100 WBC 0 X 10*3/uL (0.00-0.01); Neutrophils # (A) 9.29 X 10*3/uL (1.80-7.70); Neutrophils % (A) 70.4 %; Platelet Count 380 X 10*3/uL (140-440); Potassium 5.5 mmol/L (3.5-5.5); RBC 4.05 X 10*6/uL (4.40-5.60); RDW 17.3 % (11.5-14.5); Sodium 141 mmol/L (135-145); T4, Free (Free Thyroxine) 1.13 ng/dL (0.80-1.80); Total Bilirubin 0.3 mg/dL (0.3-1.2); Total Protein 7.6 d/dL (6.2-8.2); WBC 13.19 X 10*3/uL (4.50-10.00)
== END | disposition home or self-care (01) ==
LOC: LABWHC1 10:24
PROVIDERS: ATTEND Internal Medicine
DX: C67.9 Malignant neoplasm of bladder, unspecified (principal)
CPT/HCPCS: 36415; 80053; 84439; 84443; 85025